=== PATIENT | female | born 1935 | race Hispanic/Latino ===

== ENCOUNTER → 2018-06-18 | Outpatient (REF) | payer MEDICARE, MEDICAID ==
[~2018-06-18] MED LIST: CIPROFLOXACN500 MG PO; ULTRAM50 M1 PO
== END | disposition home or self-care (01) ==
LOC: MAMMO 09:28
PROVIDERS: ATTEND Nurse Practitioner Family
DX: Z12.31 Encounter for screening mammogram for malignant neoplasm of breast (principal); N95.1 Menopausal and female climacteric states

== ENCOUNTER 2022-08-23 16:11 | Observation (INO) | payer MEDICARE, MEDICAID ==
[2022-08-23] VITALS (8 sets, daily range): BP systolic 120–156; BP diastolic 50–83
[~2022-08-23] VITALS: Ht 160 cm; Wt 72.4 kg
[~2022-08-23 16:11] MED LIST changes: +AMLODIPINE BESY10 MG PO; +ASPIRIN81 MG PO; +CLONIDINE0.1 MG PO; +COQ-1030 M1 PO; +D350 MCG; +FLONASE AL50 MCG/ACT; +LEVOTHYROXIN75 MCG PO; +METFORMIN500 M2 PO
[2022-08-23 16:57] LABS: BASO% 0.2 % (0-3); EOS% 0.6 % (0-8); HEMATOCRIT 39.9 % (37.0-47.0); HEMOGLOBIN 12.5 g/dl (12.0-16.0); IMMATURE GRANULOCYTES 0.3 % (0.0-5.0); LYMPH% 6.6 % (15-41); MEAN CELL VOLUME 85.6 fL CALC (80.0-100.0); MEAN CORPUSCULAR HGB 26.8 pG CALC (26.0-32.0); MEAN CORPUSCULAR HGB CONC 31.3 g/dL CAL (32.0-36.0); MONO% 1.4 % (2-13); NEUT# 11.36 thou/uL (2.00-7.15); NEUT% 90.9 % (42-76); RED BLOOD COUNT 4.66 mill/uL (4.20-5.60); RED CELL DISTRI WIDTH 13.3 % (11.5-15.5)
[2022-08-23 17:13] LABS: URINE BILIRUBIN - DIPSTICK NEGATIVE (NEGATIVE); URINE BLOOD DIPSTICK MODERATE (NEGATIVE); URINE COLOR YELLOW; URINE GLUCOSE - DIPSTICK NEGATIVE (NEGATIVE); URINE KETONE NEGATIVE (NEGATIVE); URINE LEUK ESTERASE TRACE (NEGATIVE); URINE PROTEIN - DIPSTICK 30 mg/dL (NEG-TRACE); URINE UROBILINOGEN - DIPSTICK 0.2 E.U./dL (0.2)
[2022-08-23 17:16] LABS: ALBUMIN 4.3 g/dL (3.2-5.0); ALKALINE PHOSPHATASE 83 u/l (38-126); ANION GAP 14 (6-22 (CALC)); BUN 25 mg/dL (8-23); BUN/CREATININE RATIO 27 (12-20 (CALC)); CARBON DIOXIDE 25 mmol/l (22-30); CHLORIDE 102 mmol/l (95-108); CREATININE 0.9 mg/dL (0.5-1.0); GFR FOR AFR.AMER. > 60 ML/MIN (>=60 (CALC)); GFR OTHER RACES 59 ML/MIN (>=60 (CALC)); POTASSIUM 5.1 mmol/l (3.5-5.1); SGOT/AST 39 u/l (9-36); SODIUM 136 mmol/l (137-146); TOTAL PROTEIN 7.8 g/dL (6.3-8.2)
[2022-08-23 17:18] LABS: URINE NITRITE - DIPSTICK NEGATIVE (Negative)
[2022-08-23 17:19] LABS: BILIRUBIN, TOTAL 0.6 mg/dL (0.02-1.3)
[2022-08-23 17:23] LABS: URINE SQUAMOUS EPITHELIAL CELL FEW EPI/hpf (0-FEW); URINE WBC 0-2 WBC/hpf (0-5)
[2022-08-23] MEDS ORDERED: LOSARTAN POTASS25 MG PO (17:23)
[2022-08-23 17:24] LABS: URINE BACTERIA MODERATE hpf
[2022-08-23] MEDS ORDERED: PRAVASTATIN20 MG PO (17:24)
[2022-08-23] MEDS ORDERED: TIZANIDINE HCL2 MG PO (17:25)
[2022-08-24 03:56] VITALS: BP 130/50
[2022-08-24 05:23] LABS: BASO% 0.1 % (0-3); EOS% 0.1 % (0-8); HEMATOCRIT 35.1 % (37.0-47.0); IMMATURE GRANULOCYTES 0.1 % (0.0-5.0); LYMPH% 9.2 % (15-41); MEAN CORPUSCULAR HGB CONC 31.3 g/dL CAL (32.0-36.0); MONO% 4.9 % (2-13); NEUT# 11.62 thou/uL (2.00-7.15); NEUT% 85.6 % (42-76); RED BLOOD COUNT 4.08 mill/uL (4.20-5.60); RED CELL DISTRI WIDTH 13.7 % (11.5-15.5)
[2022-08-24 05:58] LABS: ALKALINE PHOSPHATASE 63 u/l (38-126); ANION GAP 10 (6-22 (CALC)); BILIRUBIN, TOTAL 0.4 mg/dL (0.02-1.3); BUN 19 mg/dL (8-23); BUN/CREATININE RATIO 20 (12-20 (CALC)); CARBON DIOXIDE 22 mmol/l (22-30); CHLORIDE 110 mmol/l (95-108); CREATININE 0.9 mg/dL (0.5-1.0); GFR FOR AFR.AMER. > 60 ML/MIN (>=60 (CALC)); GFR OTHER RACES 59 ML/MIN (>=60 (CALC)); POTASSIUM 4.4 mmol/l (3.5-5.1); SGOT/AST 25 u/l (9-36); SODIUM 138 mmol/l (137-146)
[2022-08-24 05:59] LABS: ALBUMIN 3.1 g/dL (3.2-5.0); TOTAL PROTEIN 5.7 g/dL (6.3-8.2)
[2022-08-24 06:39] VITALS: BP 131/53
[2022-08-24 15:23] VITALS: BP 171/68
[2022-08-24 19:22] VITALS: BP 167/68
[2022-08-24 19:30] VITALS: BP 153/56
[2022-08-24 19:40] VITALS: BP 153/56
[2022-08-25 06:50] VITALS: BP 162/56
[2022-08-25 09:28] VITALS: BP 162/56
[2022-08-25 10:17] LABS: ALBUMIN 3.5 g/dL (3.2-5.0); ALKALINE PHOSPHATASE 71 u/l (38-126); ANION GAP 9 (6-22 (CALC)); BILIRUBIN, TOTAL 0.3 mg/dL (0.02-1.3); BUN 14 mg/dL (8-23); BUN/CREATININE RATIO 17 (12-20 (CALC)); CARBON DIOXIDE 21 mmol/l (22-30); CHLORIDE 112 mmol/l (95-108); CREATININE 0.9 mg/dL (0.5-1.0); GFR FOR AFR.AMER. > 60 ML/MIN (>=60 (CALC)); GFR OTHER RACES 59 ML/MIN (>=60 (CALC)); POTASSIUM 3.9 mmol/l (3.5-5.1); SGOT/AST 28 u/l (9-36); SODIUM 138 mmol/l (137-146); TOTAL PROTEIN 6.5 g/dL (6.3-8.2)
[2022-08-25 10:29] LABS: BASO% 0.4 % (0-3); EOS% 0.7 % (0-8); HEMATOCRIT 37.7 % (37.0-47.0); HEMOGLOBIN 11.8 g/dl (12.0-16.0); IMMATURE GRANULOCYTES 0.1 % (0.0-5.0); LYMPH% 16.1 % (15-41); MEAN CELL VOLUME 85.7 fL CALC (80.0-100.0); MEAN CORPUSCULAR HGB 26.8 pG CALC (26.0-32.0); MEAN CORPUSCULAR HGB CONC 31.3 g/dL CAL (32.0-36.0); MONO% 6.2 % (2-13); NEUT# 6.28 thou/uL (2.00-7.15); NEUT% 76.5 % (42-76); RED BLOOD COUNT 4.4 mill/uL (4.20-5.60); RED CELL DISTRI WIDTH 13.6 % (11.5-15.5)
[2022-08-25] MEDS ORDERED: OMNICEF300 MG PO (11:09)
== END 2022-08-25 12:35 | disposition home or self-care (01) ==
LOC: ED 16:11 → MS2 19:37
PROVIDERS: Family Medicine; Nurse Practitioner Family; ADMIT Internal Medicine; ATTEND Internal Medicine
PROC: 3E0234Z Introduction of Serum, Toxoid and Vaccine into Muscle, Percutaneous Approach (ICD-10-PCS; principal; 2022-08-25)
DX: N12 Tubulo-interstitial nephritis, not specified as acute or chronic (principal); B96.20 Unspecified Escherichia coli [E. coli] as the cause of diseases classified elsewhere; I10 Essential (primary) hypertension; E11.9 Type 2 diabetes mellitus without complications; E03.9 Hypothyroidism, unspecified; E78.5 Hyperlipidemia, unspecified; Z23 Encounter for immunization; Z87.440 Personal history of urinary (tract) infections; Z79.84 Long term (current) use of oral hypoglycemic drugs; Z20.822 Contact with and (suspected) exposure to COVID-19
CPT/HCPCS: J1650

== ENCOUNTER 2023-12-18 12:03 | Observation (INO) | payer MEDICARE, MEDICAID ==
[2023-12-18] VITALS (25 sets, daily range): BP systolic 136–226; BP diastolic 59–107
[~2023-12-18] VITALS: Ht 149.9 cm; Wt 72.2 kg
[~2023-12-18 12:03] MED LIST changes: +LOSARTAN POTASS25 MG PO; +OMNICEF300 MG PO; +PRAVASTATIN20 MG PO; +TIZANIDINE HCL2 MG PO
[2023-12-18] MEDS ORDERED: ASPIRIN 81 MG/TAB PO ONE (12:15)
[2023-12-18] MEDS ORDERED: LABETALOL HCL 20 MG/ 4 ML CARTRG IV ONE (12:25)
[2023-12-18 12:47] LABS: BASO% 0.4 % (0-3); EOS% 1.9 % (0-8); HEMATOCRIT 41.6 % (37.0-47.0); IMMATURE GRANULOCYTES 0.1 % (0.0-5.0); LYMPH% 22.5 % (15-41); MEAN CELL VOLUME 85.4 fL CALC (80.0-100.0); MEAN CORPUSCULAR HGB 26.7 pG CALC (26.0-32.0); MEAN CORPUSCULAR HGB CONC 31.3 g/dL CAL (32.0-36.0); MONO% 5.6 % (2-13); NEUT# 7.52 thou/uL (2.00-7.15); NEUT% 69.5 % (42-76); RED BLOOD COUNT 4.87 mill/uL (4.20-5.60); RED CELL DISTRI WIDTH 14.1 % (11.5-15.5)
[2023-12-18 13:01] LABS: ALBUMIN 4.4 g/dL (3.2-5.0); BILIRUBIN, TOTAL 0.5 mg/dL (0.02-1.3); CREATININE 1.1 mg/dL (0.5-1.0); POTASSIUM 4.8 mmol/l (3.5-5.1); TOTAL PROTEIN 8.1 g/dL (6.3-8.2)
[2023-12-18] MEDS ORDERED: LOSARTAN POTASS50 MG PO (14:28)
[2023-12-18] MEDS ORDERED: LEVOTHYROXIN88 MC1 PO (14:32)
[2023-12-18] MEDS ORDERED: LOSARTAN Potassium 50 MG/TAB PO ONE (14:40)
[2023-12-18 14:42] LABS: URINE BILIRUBIN - DIPSTICK Negative (NEGATIVE); URINE BLOOD DIPSTICK Trace-intact (NEGATIVE); URINE GLUCOSE - DIPSTICK Negative (NEGATIVE); URINE KETONE Negative (NEGATIVE); URINE NITRITE - DIPSTICK Negative (Negative); URINE PROTEIN - DIPSTICK Negative (NEG-TRACE); URINE UROBILINOGEN - DIPSTICK 0.2 E.U./dL (0.2)
[2023-12-18 14:48] LABS: URINE COLOR Yellow; URINE LEUK ESTERASE Small (NEGATIVE)
[2023-12-18 14:53] LABS: URINE BACTERIA MODERATE hpf; URINE SQUAMOUS EPITHELIAL CELL FEW EPI/hpf (0-FEW)
[2023-12-18] MEDS ORDERED: Zaleplon 5 MG/CAP PO PRN (16:55)
[2023-12-18] MEDS ORDERED: ACETAMINOPHEN 325 MG/TAB PO PRN (16:55)
[2023-12-18] MEDS ORDERED: MAGNESIUM HYDROXIDE 30 ML UDC PO PRN (16:55)
[2023-12-18] MEDS ORDERED: LOSARTAN Potassium 50 MG/TAB PO SCH (21:00)
[2023-12-18] MEDS ORDERED: ENOXAPARIN SODIUM 40 MG/0.4 ML SYR SC SCH (21:00)
[2023-12-19] VITALS (11 sets, daily range): BP systolic 139–176; BP diastolic 56–76
[2023-12-19] MEDS ORDERED: LEVOTHYROXINE SODIUM 88 MCG TAB PO SCH (06:00)
[2023-12-19] MEDS ORDERED: LOSARTAN Potassium 50 MG/TAB PO SCH (09:00)
[2023-12-19] MEDS ORDERED: ASPIRIN EC 81 MG/TAB PO SCH (09:00)
[2023-12-19] MEDS ORDERED: amLODIPine BESYLATE 5 MG/TAB PO SCH (09:00)
[2023-12-19] MEDS ORDERED: hydrALAZINE HCL 20 MG/ML VIAL(1 ML) IV PRN (11:10)
[2023-12-19] MEDS ORDERED: ATORVASTATIN CALCIUM 40 MG/TAB PO SCH (21:00)
[2023-12-20 03:58] VITALS: BP 135/49
[2023-12-20 06:04] LABS: BASO% 0.4 % (0-3); HEMATOCRIT 37.5 % (37.0-47.0); HEMOGLOBIN 11.7 g/dl (12.0-16.0); IMMATURE GRANULOCYTES 0.1 % (0.0-5.0); LYMPH% 25.2 % (15-41); MEAN CELL VOLUME 85.4 fL CALC (80.0-100.0); MEAN CORPUSCULAR HGB 26.7 pG CALC (26.0-32.0); MEAN CORPUSCULAR HGB CONC 31.2 g/dL CAL (32.0-36.0); MONO% 5.6 % (2-13); NEUT# 5.31 thou/uL (2.00-7.15); NEUT% 65.7 % (42-76); RED BLOOD COUNT 4.39 mill/uL (4.20-5.60); RED CELL DISTRI WIDTH 14.4 % (11.5-15.5)
[2023-12-20 06:35] LABS: ALBUMIN 3.6 g/dL (3.2-5.0); BILIRUBIN, TOTAL 0.5 mg/dL (0.02-1.3); CREATININE 1.1 mg/dL (0.5-1.0); MAGNESIUM 1.9 mg/dL (1.6-2.3); POTASSIUM 4.4 mmol/l (3.5-5.1)
[2023-12-20 06:37] VITALS: BP 125/63
[2023-12-20 06:42] LABS: TOTAL PROTEIN 6.4 g/dL (6.3-8.2)
[2023-12-20] MEDS ORDERED: ISOSORBIDE MONONITRATE 20 MG TAB PO SCH (09:00)
[2023-12-20] MEDS ORDERED: ADLT ASA LOW81 MG PO (09:14)
[2023-12-20] MEDS ORDERED: ATORVASTATIN CA40 MG PO (09:15)
[2023-12-20] MEDS ORDERED: ISOSORB MONO20 MG PO (09:15)
[2023-12-20] MEDS ORDERED: KEFLEX500 MG PO (09:37)
== END 2023-12-20 10:46 | disposition home or self-care (01) ==
LOC: ED 12:03 → ED-I 15:15 → ED 15:54 → MS2 15:55
PROVIDERS: Nurse Practitioner; Nurse Practitioner Family; ADMIT Internal Medicine; ATTEND Internal Medicine
DX: I20.9 Angina pectoris, unspecified (principal); N39.0 Urinary tract infection, site not specified; I16.0 Hypertensive urgency; I12.9 Hypertensive chronic kidney disease with stage 1 through stage 4 chronic kidney disease, or unspecified chronic kidney disease; E11.22 Type 2 diabetes mellitus with diabetic chronic kidney disease; N18.31 Chronic kidney disease, stage 3a; I31.39 Other pericardial effusion (noninflammatory); E78.5 Hyperlipidemia, unspecified; E03.9 Hypothyroidism, unspecified; E66.9 Obesity, unspecified; Z87.440 Personal history of urinary (tract) infections; Z79.84 Long term (current) use of oral hypoglycemic drugs
CPT/HCPCS: G0378; J1650